=== PATIENT | female | born 1945 | race American Indian/Alaskan Native ===

== ENCOUNTER 2016-11-27 17:05 | Outpatient (CLI) | payer MEDICARE ==
--- NOTE | 2016-11-28 08:02 | Magnetic Resonance Report ---
MRI ABDOMEN WITHOUT CONTRAST HISTORY: Neoplasm of right kidney. TECHNIQUE: Multiple T1 and T2-weighted images were obtained with and without fat suppression. No IV contrast could be administered because no venous access could be obtained. COMPARISON: No relevant comparisons at this facility. FINDINGS: Both kidneys are normal size and position. The right kidney measures 9.8 cm. The left kidney measures 9.1 cm. Near the superior pole of the right kidney, a 2.5 x 2.5 x 2.5 cm rounded solid mass is suspected. This mass is similar signal intensity to the remaining renal parenchyma. There is no internal cystic change or calcifications. No obvious neovascularity on noncontrast exam. They are approximately 6 simple cortical cysts scattered throughout the right kidney with the largest measuring 2.1 cm at the superior pole. A solitary bilobed cyst measuring up 1.9 cm in the mid left kidney is also noted. There is no evidence for renal obstruction. The visualized proximal ureters are normal. No retroperitoneal adenopathy or mass. No renal vein thrombosis or other abnormality appreciated. Signal characteristics of the liver, biliary system, pancreas, spleen, adrenal glands and bowel loops are within normal limits. No evidence for ascites, inflammatory changes or bulky adenopathy. The visualized lung bases are within normal limits. No suspicious bony lesion is appreciated. IMPRESSION: 2.5 cm solid right renal mass as outlined above. Scattered bilateral renal cysts. No evidence for a metastatic process. Further evaluation with IV contrast examination is recommended if possible.
== END 2016-11-27 17:06 | disposition home or self-care (01) ==
LOC: MRI 17:05
PROVIDERS: ATTEND Radiology Diagnostic Radiology
DX: C64.9 Malignant neoplasm of unspecified kidney, except renal pelvis (principal); N28.1 Cyst of kidney, acquired
CPT/HCPCS: 36415; 74181; 82565; 84520

== ENCOUNTER 2017-01-06 12:43 | Outpatient (CLI) | payer MEDICARE ==
--- NOTE | 2017-01-06 13:59 | Mammography Report ---
BONE DENSITY STUDY: DEFINITIONS: BMD = Bone Mineral Density T-score = BMD related to mean peak bone mass of young adult (mean expressed in Standard Deviation) Z-score = Age matched BMD expressed in SD World Health Organization (WHO) Diagnostic Criteria Normal T-score > -1 SD Osteopenia T-score between -1 and -2.4 SD Osteoporosis T-score -2.5 SD or below FINDINGS: The weighted average BMD of lumbar spine L1-L4 is 1.021 with a T-score of 0.0. The weighted average BMD of hip is 0.792 with a T-score of -1.2. IMPRESSION: The patient's T-score is diagnostic for osteopenia and average relative risk for fracture. NOTE: BMD is not the only risk factor for fracture; also consider factors such as the patient's age, risk of falling, previous osteoporotic fracture, family history of osteoporotic fractures, current smoker, and low body weight. Cunningham's triangle is a region of interest in femur, predominantly of trabecular bone. It is not a true anatomic site, and [facility] does not recommend its use clinically.
== END 2017-01-06 12:44 | disposition home or self-care (01) ==
LOC: MAMMO 12:43
DX: M85.88 Other specified disorders of bone density and structure, other site (principal)
CPT/HCPCS: 77080

== ENCOUNTER 2017-01-16 16:09 | Outpatient (CLI) | payer MEDICARE ==
--- NOTE | 2017-01-19 09:09 | Magnetic Resonance Report ---
MRI ABDOMEN WITH AND WITHOUT CONTRAST INDICATION: Malignant neoplasm of unspecified kidney. COMPARISON: 11/27/2016 abdomen MRI. FINDINGS: Multiplanar and multisequence MRI of the abdomen performed before and after 15 mL MultiHance intravenously in part limited due to breathing/motion artifact. Liver, spleen, gallbladder, pancreas, adrenals and IVC within normal limits. Nonaneurysmal abdominal aorta, though infrarenal ectasia to approximately 2.1 cm caliber AP noted, axial image 87, series 11. Few small, subcentimeter retroperitoneal lymph nodes. Gastrohepatic lymph nodes though enlarged to approximately 1.5 cm. At least 2 small cystic structures again noted just below the GE junction and posteromedial to the stomach, the larger approximately 2 cm, axial image 11, series 5. Hepatic flexure now noted positioned between the liver and the right hemidiaphragm/abdominal wall. No bowel obstruction with grossly normal bowel, marrow and muscle signal. No ascites. Clear visualized lung bases. Borderline cardiomegaly. Nonspecific distal esophageal wall prominence/thickening, not excluded for gastroesophageal reflux and/or hiatal hernia, amongst others. Specifically, nonhydronephrotic kidneys bilaterally with approximately 1.7 cm slightly lobulated left renal cortical cyst inferiorly again seen. Multiple right renal cysts also noted, 5 or 6 in number with the largest again approximately 2 cm at the upper pole, axial image 13, series 5. More inferolateral approximately 2.5 cm solid right renal mass also again seen, axial image 59, series 11 with slight progressive internal enhancement on 1, 3 and 5 minute post contrast axial images, more so along its superior aspect. CONCLUSION: 1. Approximately 2.5 cm solid right renal neoplasm suspected, as detailed above. No significant change in size in the short interval. Correlation/direct comparison with more remote imaging would also be helpful, if available. 2. Gastrohepatic lymphadenopathy not excluded metastatic. 3. Various other incidental findings, including bilateral renal cysts and nonspecific cystic foci posteromedial to the stomach superiorly, amongst others, as described. Thank you for the opportunity to participate in this patient's care.
== END 2017-01-16 16:10 | disposition home or self-care (01) ==
LOC: MRI 16:09
PROVIDERS: ATTEND Radiology Diagnostic Radiology
DX: C64.1 Malignant neoplasm of right kidney, except renal pelvis (principal); C64.2 Malignant neoplasm of left kidney, except renal pelvis
CPT/HCPCS: 36415; 74183; 82565; 84520; A9577

== ENCOUNTER 2017-06-12 15:35 | Outpatient (CLI) | payer MEDICARE ==
--- NOTE | 2017-06-13 15:59 | Magnetic Resonance Report ---
FINAL REPORT EXAM: MR ABDOMEN WO/W CON HISTORY: RENAL MASS TECHNIQUE: Fat sensitive and fluid sensitive MR sequences of the abdomen were obtained in axial, coronal planes. Pre and post-contrast imaging performed. 15 cc MultiHance IV contrast administered. PRIORS: None. FINDINGS: There is a nonspecific complex cystic mass in the right kidney. It measures approximately 2.3 x 2.0 by 2.1 cm. It is low signal on T2, heterogeneous and partially hyperintense on T1. Post-contrast images demonstrate some peripheral enhancement. I cannot exclude neoplasm/malignancy. Additionally, there is a nonenhancing lesion just superior to this demonstrating signal characteristics compatible with a hemorrhagic cyst. This measures 2.0 x 1.6 x 1.4 cm. Other renal lesions bilaterally are compatible with small simple cysts. There is no focal liver lesions seen. The spleen, pancreas, adrenal glands have no significant abnormality. There is no abdominal aortic aneurysm seen. IMPRESSION: There is a complex cystic right renal lesion measuring 2.3 x 2.0 x 2.1 cm which appears to demonstrates some enhancement of its wall peripherally but no mural nodularity. Malignant lesion not excluded. Just superior to this complex lesion there is a hemorrhagic cyst measuring about 2.0 x 1.6 by 1.4 cm
--- NOTE | 2017-06-13 16:03 | Magnetic Resonance Report ---
FINAL REPORT EXAM: MR PELVIS WO/W CON HISTORY: RENAL MASS TECHNIQUE: Fat sensitive and fluid sensitive MR sequences of the pelvis were performed in axial, coronal and sagittal planes. Pre and post-contrast imaging performed. 15 cc MultiHance IV contrast material administered. PRIORS: None. FINDINGS: There is no abnormal pelvic mass or fluid collection identified. The bladder is unremarkable. There is no lymphadenopathy seen. There is a small mass in the left uterus measuring up about 11 mm. This is likely a fibroid. No other mass identified. No enhancing abnormality otherwise identified. IMPRESSION: Tiny uterine fibroid. No other significant finding.
== END 2017-06-12 15:36 | disposition home or self-care (01) ==
LOC: MRI 15:35
PROVIDERS: ATTEND Radiology Diagnostic Radiology
DX: C64.9 Malignant neoplasm of unspecified kidney, except renal pelvis (principal); D25.9 Leiomyoma of uterus, unspecified; N28.89 Other specified disorders of kidney and ureter; N28.1 Cyst of kidney, acquired; I10 Essential (primary) hypertension; E11.9 Type 2 diabetes mellitus without complications; E78.00 Pure hypercholesterolemia, unspecified; Z87.891 Personal history of nicotine dependence
CPT/HCPCS: 36415; 72197; 74183; 82565; 84520; A9577

== ENCOUNTER 2017-10-01 09:03 | Outpatient (CLI) | payer MEDICARE ==
--- NOTE | 2017-10-01 18:07 | Magnetic Resonance Report ---
FINAL REPORT PROCEDURE: MR ABDOMEN WO/W CON TECHNIQUE: Magnetic resonance imaging of the abdomen was performed using standard pulse sequences without contrast material, followed by the IV injection paramagnetic contrast and additional sequences. HISTORY: Renal mass. COMPARISON: MRI dated 06/12/2017. FINDINGS: Visualized lower thorax: Small pericardial effusion. Liver parenchyma: Normal. Biliary system: Normal. Pancreas: Normal. Kidneys/Adrenal glands: Similar to prior examination there is a 1.9 x 1.6 by 1.5 cm lesion in the superior pole of the right kidney, demonstrates mildly high signal intensity on T1 weighted images. This previously measured 2 x 1.6 x 1.4 cm. Just inferior to this is the same lesion that demonstrates heterogeneous slightly high T1 and low T2 signal intensity, measuring 2.4 x 2 x 2 cm, previously 2.3 x by 2 x 2.1 cm. This again demonstrates subtle peripheral enhancement without significant nodularity. The peripheral enhancement persists on delayed images. There may be subtle foci of fat signal intensity within the lesion. There is motion which somewhat limits evaluation, there may be a few subtle septations within this lesion. Several other bilateral renal lesions have signal intensities consistent with simple cysts. Spleen: Normal. Aorta/Lymph nodes: There are scattered small periportal/periaortic, and perigastric lymph nodes, largest perigastric lymph node measures 13 mm. Mild atherosclerosis of the aorta. Other: Mild degenerative changes of the spine. IMPRESSION: Bilateral renal lesions. Similar to prior examination, one on the right has heterogeneous slightly high T1 and low T2 signal intensity. There is subtle peripheral enhancement without significant nodularity and there may be subtle septations. Size of lesion has remained relatively stable. Although could represent a benign process including complex cyst considering stability, difficult to completely exclude malignant lesion. A CT scan may be helpful for further characterization if there is continued clinical concern, may help see whether there are small foci of macroscopic fat within lesion as would be present with angiomyolipoma. Other described renal lesion just superior to this is also stable, and may represent complex/hemorrhagic cyst. This can also be re-evaluated on followup imaging. Simple appearing bilateral renal cysts. Small pericardial effusion. Stable scattered small perianal portal/periaortic and perigastric lymph nodes.
--- NOTE | 2017-10-01 18:21 | Magnetic Resonance Report ---
FINAL REPORT PROCEDURE: MR PELVIS WO/W CON TECHNIQUE: Magnetic resonance imaging of the pelvis was performed using standard sequences before and after the IV injection of paramagnetic contrast. CPT 02515 HISTORY: Renal mass. COMPARISON: Please refer to abdominal MRI dated same day and time. Comparison made to MRI dated 06/12/2017. FINDINGS: Uterus: Similar to prior examination there is a 11.5 mm slightly low/isointense T1 with slight enhancement and T2 signal intensity uterine lesion, may have submucosal component. Ovaries and adnexae: Normal. Bladder: There is mild bladder wall thickening. Pelvic musculature: Normal. Free fluid: None. Adenopathy or mass: None. Abnormal contrast enhancement: None. Other: Multilevel degenerative changes of the lumbar spine. IMPRESSION: Stable uterine fibroid, may have submucosal component. Mild bladder wall thickening, consider correlation clinically if there is concern for cystitis.
== END 2017-10-01 09:04 | disposition home or self-care (01) ==
LOC: MRI 09:03
PROVIDERS: ATTEND Radiology Diagnostic Radiology
DX: C64.9 Malignant neoplasm of unspecified kidney, except renal pelvis (principal); D25.9 Leiomyoma of uterus, unspecified; I31.3 Pericardial effusion (noninflammatory); N28.1 Cyst of kidney, acquired; I70.0 Atherosclerosis of aorta; M47.896 Other spondylosis, lumbar region
CPT/HCPCS: 36415; 72197; 74183; 82565; 84520; A9577

== ENCOUNTER 2018-10-19 09:50 | Outpatient (CLI) | payer MEDICARE ==
--- NOTE | 2018-10-19 14:42 | Magnetic Resonance Report ---
MRI ABDOMEN WITH AND WITHOUT CONTRAST MR PELVIS WITH AND WITHOUT CONTRAST HISTORY: Malignant neoplasm of unspecified kidney, except renal pelvis. Previous cryoablation of a right renal tumor. TECHNIQUE: Multisequence, multiplanar MRI was performed before and after IV contrast. COMPARISON: Multiple previous examinations were reviewed with 04/16/18 being the most recent. FINDINGS: The cryoablation site in the posterior right kidney appears slightly decreased in size measuring 2.1 x 1.9 x 2.1 cm on today's exam. There is smooth peripheral enhancement which is unchanged. No evidence for recurrent mass or nodularity. No perinephric or retroperitoneal adenopathy has developed. Both kidneys remain normal size and position. Scattered simple appearing cysts measuring up to 1.5 cm appear stable in size and number. The ureters and bladder are unremarkable. Signal characteristics of the liver, biliary system, spleen and adrenal glands remain within normal limits. There is mild fecal retention. The GI system is within normal limits otherwise. 1 cm submucosal fibroid in the anterior wall of the uterus is unchanged. The adnexa are unremarkable. No pelvic mass or adenopathy has developed. No pelvic fluid collection. Small indeterminate lymph nodes along the lesser curvature the stomach are stable in size and number and may be reactive in nature. No bulky adenopathy has developed. Bone marrow signal throughout the visualized pelvis and spine remains within normal limits. The lung bases are grossly clear. IMPRESSION: Stable findings since 04/16/18 exam. Normal appearance of the cryoablation site in the right kidney with no evidence of recurrence or metastasis. Stable bilateral renal cysts.
== END 2018-10-19 09:51 | disposition home or self-care (01) ==
LOC: MRI 09:50
PROVIDERS: ATTEND Radiology Diagnostic Radiology
DX: N28.1 Cyst of kidney, acquired (principal); C64.9 Malignant neoplasm of unspecified kidney, except renal pelvis; E11.9 Type 2 diabetes mellitus without complications; I10 Essential (primary) hypertension; E78.00 Pure hypercholesterolemia, unspecified; E03.9 Hypothyroidism, unspecified; Z87.891 Personal history of nicotine dependence
CPT/HCPCS: 36415; 72197; 74183; 82565; 84520; A9577

== ENCOUNTER 2019-02-16 09:30 | Outpatient (CLI) | payer MEDICARE ==
--- NOTE | 2019-02-16 15:31 | Cat Scan Report ---
CT ABDOMEN AND PELVIS WITH and without CONTRAST HISTORY: N28.89) RENAL MASS. Patient has had previous history of right-sided cryoablation for renal carcinoma COMPARISON: MRI of the abdomen from 10/19/2018 TECHNIQUE: CT images of the abdomen and pelvis were obtained following administration of intravenous contrast. All CT scans at this location are performed using CT dose reduction for ALARA by means of automated exposure control. CONTRAST: 100 ml of intravenous contrast administered. FINDINGS: Lungs/bones: The lung bases are clear. There is DJD in the spine and pelvis with no acute osseous ab normality or osseous metastatic disease. Abdomen/pelvis: There are a few simple bilateral renal cysts as well as a nonenhancing hyperdense cy st in the upper pole the right kidney. There is no pathologic regional adenopathy. The liver is mildly enlarged with no focal mass identified. The gallbladder, spleen, pancreas, and pr oximal GI tract appear unremarkable. There is mild bilateral adrenal thickening. Uterus is unremarkable. Bladder is partially collapsed but otherwise there is suggestion of smooth ci rcumferential wall thickening. There is no significant pelvic free fluid or acute colonic abnormality identified. The appendix and terminal ileum appear normal. IMPRESSION: 1. Stable bilateral renal cysts, one of which is hyperdense in the upper pole the right. No metastati c disease identified. Signer Name: Jose Crespo MD Signed: 02/16/2019 3:27 PM Workstation Name: [id number]
== END 2019-02-16 09:31 | disposition home or self-care (01) ==
LOC: CT 09:30
PROVIDERS: ATTEND Urology
DX: N28.1 Cyst of kidney, acquired (principal); I10 Essential (primary) hypertension; E11.9 Type 2 diabetes mellitus without complications; E78.00 Pure hypercholesterolemia, unspecified; E03.9 Hypothyroidism, unspecified
CPT/HCPCS: 36415; 74178; 82565; 84520; Q9967

== ENCOUNTER 2019-08-05 11:08 | Outpatient (CLI) | payer MEDICARE ==
--- NOTE | 2019-08-05 15:11 | Cat Scan Report ---
CT ABDOMEN WITHOUT AND WITH CONTRAST HISTORY: D41.01Neoplasm of uncertain behavior of right kidney. COMPARISON: 02/16/2019 CT abdomen pelvis. Multiple previous MR exams. TECHNIQUE: Helical CT images of the abdomen were obtained before and after 100 cc of Omnipaque 300. S agittal and coronal reformatted images were reviewed. All CT scans at this location are performed usi ng CT dose reduction for ALARA by means of automated exposure control. FINDINGS: Abdomen: Both kidneys remain normal size and position. Multiple bilateral renal cysts are again iden tified which appear stable in size and number. Cryoablation site in the superior posterior right kidn ey also appears stable measuring 2.4 x 2.0 cm in axial plane. There is mild smooth peripheral enhance ment. No new nodularity or soft tissue density component is appreciated. No suspicious renal mass or recurrence has developed. The liver, biliary system, pancreas, spleen, adrenal glands and visualized bowel loops remain unremar kable. There are moderate diffuse aortic calcifications. No aneurysm. No suspicious adenopathy, free fluid o r inflammatory changes. Lungs/bones: The visualized lung bases are well-aerated. No suspicious nodule. No suspicious bony le charly has developed. IMPRESSION: Stable appearance of the right renal cryoablation site. No evidence for recurrent or metastatic disea se. Stable bilateral renal cysts. Signer Name: Garrick Hand Jr, MD Signed: 08/05/2019 3:07 PM Workstation Name: [id number]
== END 2019-08-05 11:09 | disposition home or self-care (01) ==
LOC: CT 11:08
PROVIDERS: ATTEND Urology
DX: D41.01 Neoplasm of uncertain behavior of right kidney (principal); N28.1 Cyst of kidney, acquired
CPT/HCPCS: 36415; 74170; 82565; 84520; Q9967

== ENCOUNTER 2020-11-07 09:58 | Outpatient (CLI) | payer MEDICARE ==
--- NOTE | 2020-11-07 12:27 | Magnetic Resonance Report ---
MR ABDOMEN WITH AND WITHOUT CONTRAST HISTORY: Malignant neoplasm of unspecified kidney, except renal pelvis. Previous cryoablation of a ri ght renal tumor. TECHNIQUE: Multisequence, multiplane are MRI was performed before and after 18 cc of IV gadolinium. COMPARISON: Multiple previous CTs and MRs of the abdomen with the most recent being 03/14/2020. FINDINGS: Cryoablation site in the posterior right kidney is again seen and stable in size and characteristics measuring 1.9 x 1.9 cm in axial plane. There is smooth peripheral enhancement at the cryoablation sit e. No evidence for recurrent mass or nodularity. Multiple bilateral renal cysts appear stable in size and number. The renal veins are patent. No retroperitoneal adenopathy has developed. The liver, A system, spleen, pancreas, adrenal glands and visualized bowel loops remain unremarkable. The vascular structures are widely patent. No free fluid or inflammatory changes have developed. Nor mal bone marrow signal in the visualized osseous structures. IMPRESSION: Stable findings since 03/14/2020 exam with no evidence for disease recurrence or metastasi s. Signer Name: Garrick Hand Jr, MD Signed: 11/07/2020 12:22 PM Workstation Name: [id number]
== END 2020-11-07 09:59 | disposition home or self-care (01) ==
LOC: MRI 09:58
PROVIDERS: ATTEND Radiology Diagnostic Radiology
DX: C64.1 Malignant neoplasm of right kidney, except renal pelvis (principal)
CPT/HCPCS: 36415; 74183; 82565; 84520; A9575

== ENCOUNTER 2021-07-17 10:21 | Outpatient (CLI) | payer MEDICARE ==
--- NOTE | 2021-07-17 12:19 | Magnetic Resonance Report ---
MRI ABDOMEN WITHOUT AND WITH CONTRAST INDICATION / CLINICAL INFORMATION: MALIGNANT NEOPLASM OF RIGHT KIDNEY,EXCEPT RENAL PELVIS. TECHNIQUE: Multiplanar, multisequence series were obtained through the abdomen. COMPARISON: Multiple previous exams were reviewed with the most recent being 11/07/2020 FINDINGS: LIVER: No significant abnormality. GALLBLADDER: No significant abnormality. BILE DUCTS: No significant abnormality. PANCREAS: No significant abnormality. SPLEEN: No significant abnormality. ADRENALS: No significant abnormality. RIGHT KIDNEY AND URETER: Cryoablation site in the posterior right kidney is again identified and has decreased slightly in size from 1.9 cm to 1.7 cm in maximal diameter. There is no evidence for recurr ent soft tissue mass or nodularity along the cryoablation site. Previously described scattered simple cysts in the right kidney are also unchanged. LEFT KIDNEY AND URETER: Stable scattered renal cysts. No renal mass or hydronephrosis. STOMACH AND VISUALIZED BOWEL: No significant abnormality. PERITONEUM: No free fluid. No free air. No fluid collection. LYMPH NODES: No significant adenopathy. AORTA and ARTERIES: No significant abnormality. IVC and VEINS: No significant abnormality. The renal veins remain patent. ADDITIONAL FINDINGS: None. SKELETAL SYSTEM: No significant abnormality. IMPRESSION: Stable appearance of the right renal cryoablation site with no evidence for recurrent or metastatic disease. Stable bilateral simple renal cysts. Signer Name: Garrick Hand Jr, MD Signed: 07/17/2021 12:13 PM Workstation Name: [id number]
== END 2021-07-17 10:22 | disposition home or self-care (01) ==
LOC: MRI 10:21
PROVIDERS: ATTEND Radiology Diagnostic Radiology
DX: C64.1 Malignant neoplasm of right kidney, except renal pelvis (principal); N28.1 Cyst of kidney, acquired
CPT/HCPCS: 36415; 74183; 82565; 84520; A9575

== ENCOUNTER 2022-02-05 09:28 | Outpatient (CLI) | payer MEDICARE ==
--- NOTE | 2022-02-05 14:56 | Magnetic Resonance Report ---
MR abdomen wo/w con INDICATION / CLINICAL INFORMATION: C64.1 MALIGNANT NEOPLASM OF RIGHT KIDNEY follow up yearly. TECHNIQUE: Multiplanar, multisequence MR images were obtained. Routine MRI of the abdomen performed with and wit hout 20 mL of MultiHance. COMPARISON: 03/14/2020 and 07/17/2021. FINDINGS: MRI abdomen. There is postoperative change consistent with cryoablation along the superior posterior aspect of the right kidney. The cryoablation defect is similar in size and overall appearance when co mpared to multiple prior exams dating to 03/14/2020. Postcontrast images demonstrates minimal peripher al enhancement, stable. There are multiple cysts within both kidneys that are grossly unchanged. The liver, gallbladder, spleen, pancreas adrenal glands are unremarkable. Moderate atherosclerotic di sease of the abdominal aorta incidentally noted. IMPRESSION: Stable overall appearance of the right kidney cryoablation site when compared to multiple prior exams, as above. No new findings. Signer Name: Jose Francis MD Signed: 02/05/2022 2:52 PM Workstation Name: [id number]
== END 2022-02-05 09:29 | disposition home or self-care (01) ==
LOC: MRI 09:28
PROVIDERS: ATTEND Radiology Diagnostic Radiology
DX: C64.1 Malignant neoplasm of right kidney, except renal pelvis (principal); N28.1 Cyst of kidney, acquired; I70.0 Atherosclerosis of aorta
CPT/HCPCS: 36415; 74183; 82565; 84520; A9575